=== PATIENT | female | born 1975 | race African-American/Black ===

== ENCOUNTER 2016-12-10 20:24 | Emergency (ER) | payer OTHER, MEDICAID ==
[~2016-12-10] VITALS: Ht 170.2 cm; Wt 62.1 kg
[~2016-12-10 20:24] MED LIST: ASPIRIN PO; EVOTAZ PO; KEFLEX250 MG PO; KEPPRA1000 MG PO; LIPITOR10 MG PO; LOPRESSOR25 MG PO; TRUVADA 200 MG-1 TAB PO; [UNRECOGNIZED DRUG - OTHER] PO
[2016-12-10 20:32] VITALS: BP 107/83
--- NOTE | 2016-12-10 21:06 | NUR ---
Patient ambulated to bed 02.
--- NOTE | 2016-12-10 21:06 | NUR ---
Dr. Cruz evaluating patient at bedside.
--- NOTE | 2016-12-10 21:12 | NUR ---
41/F BIB SELF C/O HEADACHE x SINCE OCTOBER. NO S/S OF DISTRESS NOTED AT THIS MOMENT. ER MD AT BED SIDE.
[2016-12-10 21:37] VITALS: BP 112/79
--- NOTE | 2016-12-10 21:37 | NUR ---
PER ER MD STABLE FOR discharged with v/s stable. Written and verbal after care instructions given and explained. Patient alert, oriented and verbalized understanding of instructions. Ambulatory with steady gait. All questions addressed prior to discharge. ID band removed. Patient advised to follow up with PMD. Rx of MECLIZINE [id number] MG, MOTRIN 600 MG, AND SIMETHICONE 80 MG given. Patient educated on indication of medication including possible reaction and side effects. Opportunity to ask questions provided and answered.
== END 2016-12-10 21:37 | disposition home or self-care (01) ==
LOC: MED 20:24
DX: R42 Dizziness and giddiness (principal); M79.604 Pain in right leg; M79.605 Pain in left leg; R51 Headache; J45.909 Unspecified asthma, uncomplicated; G89.29 Other chronic pain; J44.9 Chronic obstructive pulmonary disease, unspecified; Z88.6 Allergy status to analgesic agent; Z88.0 Allergy status to penicillin; Z86.73 Personal history of transient ischemic attack (TIA), and cerebral infarction without residual deficits; Z79.82 Long term (current) use of aspirin; Z79.899 Other long term (current) drug therapy

== ENCOUNTER 2017-05-06 20:20 | Emergency (ER) | payer OTHER, MEDICAID ==
[~2017-05-06] VITALS: Ht 170.2 cm; Wt 64.0 kg
[~2017-05-06 20:20] MED LIST changes: +ASPI81EC30 PO; -ASPIRIN PO; +ATAZ1TAB PO; +ATOR10TA PO; +CEPH250C16 PO; +EMTR1TAB12 PO; -EVOTAZ PO; -KEFLEX250 MG PO; -KEPPRA1000 MG PO; +LEVE1000 PO; -LIPITOR10 MG PO; -LOPRESSOR25 MG PO; +METO25TA PO; -TRUVADA 200 MG-1 TAB PO; -[UNRECOGNIZED DRUG - OTHER] PO
[2017-05-06 20:30] VITALS: BP 121/60
--- NOTE | 2017-05-07 02:50 | NUR ---
PATIENT LEFT WITHOUT BEING SEEN BY DR. DUENAS. NO FURTHER CARE PROVIDED FOR PATIENT.
== END 2017-05-07 02:50 | disposition left against medical advice (07) ==
LOC: MED 20:20
DX: J02.9 Acute pharyngitis, unspecified (principal); M79.1 Myalgia; Z53.21 Procedure and treatment not carried out due to patient leaving prior to being seen by health care provider